=== PATIENT | female | born 1985 | race Caucasian/White ===

== ENCOUNTER 2017-03-22 21:19 | Emergency (ER) | payer BC ==
[2017-03-22 21:40] LABS: URINE MUCUS NONE SEEN (Up to 25%); URINE RBC NONE SEEN (0-5/hpf); URINE SQUAMOUS EPITHELIAL CELL NONE SEEN (<= 15/hpf); URINE WBC NONE SEEN (0-4/hpf)
[2017-03-22] MEDS ORDERED: ACETAMINOPHEN 1,000 MG/100 ML VIAL IV ONE (21:50)
[2017-03-22 21:57] LABS: ALBUMIN 3.9 g/dL (3.5-5.0); ALKALINE PHOSPHATASE 55 U/L (38-126); BILIRUBIN, DIRECT 0.3 mg/dL (0.0-0.4); BILIRUBIN, TOTAL 0.4 mg/dL (0.2-1.3); BLOOD UREA NITROGEN 19 mg/dL (7-17); C-REACTIVE PROTEIN 21.1 mg/L (<10.0); CALCIUM 9.2 mg/dL (8.4-10.2); CHLORIDE 102 mmol/L (98-107); EST GLOMERULAR FILTRATION RATE 43 mL/min; GLUCOSE 51 mg/dL (70-100); LIPASE 91 U/L (23-300); MAGNESIUM 2.1 mg/dL (1.6-2.3); POTASSIUM 4.5 mmol/L (3.5-5.1); SODIUM 137 mmol/L (137-145); TOTAL PROTEIN 6.4 g/dL (6.3-8.2)
[2017-03-22 21:58] LABS: ACETAMINOPHEN < 10.0 ug/mL (10.0-30.0); ETHYL ALCOHOL < 10 mg/dL (<10); SALICYLATE < 1.0 mg/dL (<20.0)
[2017-03-22 22:01] LABS: AST 1388 U/L (14-36); BASOPHILS 0.1 % (0.0-2.0); HEMATOCRIT 42.4 % (36.0-48.0); HEMOGLOBIN 14.2 g/dL (12.0-16.0); LYMPHOCYTES 16.6 % (20.0-40.0); LYMPHOCYTES# 3.1 X 10^3uL (0.8-3.8); MEAN CELL VOLUME 91.2 fL (80.0-100.0); MEAN CORPUS. HGB CONCENTRATION 33.6 g/dL (32.0-36.0); MEAN CORPUSCULAR HEMOGLOBIN 30.6 pg (29.0-35.0); MEAN PLATELET VOLUME 9.3 fL (7.4-10.4); MONOCYTES 7.3 % (2.0-10.0); MONOCYTES# 1.4 X 10^3uL (0.2-1.0); NEUTROPHILS# 14.3 X 10^3uL (2.6-6.7); PLATELET COUNT 210 X 10^3uL (130-440); RED BLOOD COUNT 4.65 X 10^6uL (4.20-6.10); WHITE BLOOD COUNT 18.8 X 10^3uL (3.9-10.7)
[2017-03-22 22:03] LABS: ALT 1250 U/L (9-52)
[2017-03-22] MEDS ORDERED: MIDAZOLAM HCL 2 MG/2 ML VIAL ONE (22:07)
[2017-03-22] MEDS ORDERED: NALOXONE HCL 2 MG/2 ML SYR ONE (22:08)
--- NOTE | 2017-03-22 22:25 | CT REPORT ---
HISTORY: Unresponsive COMPARISON: None. TECHNIQUE: Axial non-contrast images obtained from skull vertex through foramen magnum. Dose reduction technique was utilized. FINDINGS: Examination is limited by streak artifact. There is no atrophy. There is no hemorrhage. There is no hydrocephalus. No mass lesion is identifi ed. Delong white differentiation adequate, there is no infarction. No midline shift is identified. T here is a mucous retention cyst in the right maxillary sinus. The other paranasal sinuses and mastoid air cells are clear. IMPRESSION: No acute intracranial abnormality. Final Electronic Signature: This report was electronically signed by Dave Fair MD on 03/22/2017 1 0:23 PM. [email or web address] /
[2017-03-22] MEDS ORDERED: VANCOMYCIN HCL 1,000 MG/20 ML VIAL ONE (22:35)
[2017-03-22] MEDS ORDERED: NORMAL SALINE 100 ML IV ONE (22:35)
[2017-03-22] MEDS ORDERED: PIPERACILLIN /TAZO 4.5 GM/10 ML VIAL IV ONE (22:36)
[2017-03-22] MEDS ORDERED: NORMAL SALINE 250 ML IV ONE (22:36)
[2017-03-22] MEDS ORDERED: NOREPINEPHRINE BITARTRATE 4 MG/4 ML VIAL IV ONE ×2 (22:37→22:46)
[2017-03-22] MEDS ORDERED: NORMAL SALINE 2,000 ML IV ONE (22:40)
[2017-03-22] MEDS ORDERED: DEXTROSE 5% WATER 500 ML IV ONE ×2 (22:42→23:09)
[2017-03-22 22:50] LABS: ARTERIAL BLOOD GAS HCO3 16.6 mmol/L (22-26); ARTERIAL BLOOD GAS PCO2 32.2 mmHg (35-45)
[2017-03-22] MEDS ORDERED: NORMAL SALINE 1,000 ML IV ONE (22:52)
[2017-03-22 22:54] LABS: URINE APPEARANCE CLEAR; URINE COLOR YELLOW; URINE LEUKOCYTE ESTERASE NEGATIVE (NEGATIVE); URINE NITRITE NEGATIVE (NEGATIVE); URINE PH 5.5 (5-7); URINE SPECIFIC GRAVITY 1.025 (0.001-1.035)
[2017-03-22 22:55] LABS: URINE BACTERIA NONE SEEN (<10/hpf); URINE BILIRUBIN NEGATIVE (NEGATIVE); URINE BLOOD NEGATIVE (NEGATIVE); URINE GLUCOSE NORMAL (NEGATIVE); URINE KETONE NEGATIVE (NEGATIVE); URINE PROTEIN 30mg/dL (1+) (NEG - TRACE); URINE UROBILINOGEN 0.2mg/dL (Normal) (NEG-1mg/dL)
[2017-03-22] MEDS ORDERED: VASOPRESSIN 20 UNITS/ML VIAL ONE ×2 (23:06→23:10)
--- NOTE | 2017-03-22 23:38 | ER NURSING DOCUMENTATION ---
Nurse's Notes [facility] Name:Arabella Patel Age:32 yrs Sex:Female :1985 Arrival Date:03/22/2017 Time:21:19 BedTrauma-A Private MD:Physician, No Diagnosis:Overdose;Sepsis Presentation: 03/22 21:21 Transition of care: patient was not received from another setting of care. Notified ED nf Physician of patient's arrival and CC Dr. Massey notified. 21:21 Acuity: DARYL 1 nf 21:21 Method Of Arrival: EMS: 420 rh 22:36 Presenting complaint: Presenting complaint: EMS states: Pt was not feeling well today, rh general malaise. Tonight the patient became unconscious, foaming at the mouth, difficulty breahting and unresponsive while asleep, family called 911 and CPR was begun by family and CPR was initiated by fire. upon arrival ems suctioned copious amounts of mucus and bile from her airway. Pt was intubated, IV's initiated. Parents deny any drug use. Triage Assessment: 22:41 General: Appears distressed, Behavior is listless. Pain: Denies pain. Neuro: Level of bw2 Consciousness is listless, unresponsive. Respiratory: Breath sounds are diminished bilaterally. Historical: - Allergies: Bactrim; - Home Meds: 1. Clonazepam Oral - PMHx: BACK PAIN; deviate septum; ANXIETY; - PSHx: back fusions; deviated septum surgery; CHOLECYSECTOMY; ; - Tetanus: unknown. - Ebola Screening: : Patient negative for fever greater than or equal to 101.5 degrees Fahrenheit, and additional compatible Ebola Virus Disease symptoms. Patient denies exposure to infectious person. Patient denies travel to an Ebola-affected area in the 21 days before illness onset. No symptoms or risks identified at this time. . - Immunization history: Unable to Obtain. - Social history: Smoking status: Patient uses tobacco products, heavy tobacco smoker. Screenin:43 Infectious Disease Risk None. Abuse screen: Denies threats or abuse. Nutritional bw2 screening: No deficits noted. Assessment: 22:30 Neuro: Pupils are fixed, constricted. Cardiovascular: Rhythm is sinus tachycardia. bw2 22:42 See Triage Assessment done by same RN. bw2 23:08 Reassessment: contacts removed and given to family . rh Vital Signs: 21:31 Pulse 129 MON; Resp 30; Pulse Ox 92% ; rh 21:36 Pulse 129 MON; Resp 30; Pulse Ox 94% ; rh 21:36 BP 110 / 68 (auto/); rh 21:40 BP 98 / 60 (auto/); rh 21:46 Pulse 129 MON; Resp 17; Pulse Ox 95% ; rh 21:50 BP 102 / 55 (auto/); rh 22:39 BP 83 / 36 (auto/); Pulse 122 MON; Resp 13; Pulse Ox 97% ; rh 22:43 BP 72 / 58 (auto/); rh 22:44 Pulse 121 MON; Resp 19; Temp 101.7(R); Pulse Ox 96% ; rh 22:50 BP 86 / 48 (auto/); rh 22:54 Pulse 120 MON; Resp 24; Pulse Ox 92% ; rh 22:55 BP 72 / 61 (auto/); rh 22:59 Pulse 119 MON; Resp 25; Pulse Ox 93% ; rh 23:08 BP 75 / 53 (auto/); Pulse 119; bw2 23:34 BP 90 / 52; Pulse 117; Resp 21; Pulse Ox 99% ; bw2 ED Course: 21:19 Patient arrived in ED. em2 21:19 Physician, No is Private Physician. em2 21:20 Placed oral airway: # 7. rh 21:20 Oxygen O2 via oxygen 100% via the ET tube. rh 21:22 Triage completed. nf 21:22 Jose Angel Massey MD is Attending Physician. be 21:34 Urine collected. Clean catch specimen. em1 21:36 EKG done. (by ED staff). em1 21:[address] mr 22:18 Aydin Lopez is Primary Nurse. bw2 22:19 Patient moved back from [address]. mr 22:35 ABG drawn. (by ED staff). rh 22:43 Inserted peripheral IV: 18 gauge 20 gauge in right in left antecubital area. bw2 22:43 Valuables Remains with patient Patient has correct armband on for positive bw2 identification. Placed in gown. Bed in low position. Side rails up X2. monitoring analyst on. Pulse ox on. NIBP on. 22:45 Inserted peripheral IV: 22 gauge in left Wrist. bw2 23:15 EKG attached rh Administered Medications: 21:30 Drug: NS 0.9% 2000 ml; Route: IV; Rate: bolus; Site: left antecubital; rh 22:40 Follow up: IV Status: Completed infusion; IV Intake: 2000ml rh 21:40 Drug: acetominophen 1000 mg; Route: IVP; Site: right antecubital; rh 23:16 Follow up: Response: No adverse reaction rh 22:36 Drug: vancomycin 1 grams; Route: IVPB; Infused Over: 2 hrs; Site: right antecubital; rh 23:16 Follow up: IV Status: Infusing continued upon transfer rh 22:36 Drug: Zosyn - Piperacillin-Tazobactam 4.5 grams; Route: IVPB; Site: left antecubital; rh 23:03 Follow up: IV Status: Completed infusion; IV Intake: 100ml rh 22:36 Drug: Levophed 4 mcg/min; {Note: LEVOPHED STARTED AT 10 mcg/min at 2236 LEVOPHED rh INCREASED TO 20 mcg/min at 2242 and TRITRATED AGAIN TO 30 mcg/min at 2247.} Route: IV; Rate: calculated rate; Site: right antecubital; 22:44 Drug: Levophed 20 mcg/min; Route: IV; Rate: calculated rate; Site: right antecubital; bw2 23:16 Follow up: IV Status: Infusing continued upon transfer rh 22:50 Drug: NS 0.9% 1000 ml; Route: IV; Rate: bolus; Site: left wrist; rh 23:16 Follow up: IV Status: Infusing continued upon transfer rh 23:00 Drug: Vasopressin 0.2 units/min; {Note: ADMIN BY VICENTE ORTIZ - INCREASED TO 0.4 mcg/min at rh 2312.} Route: IV; Rate: 100 mcg/min; Site: left antecubital; 23:16 Follow up: IV Status: Infusing continued upon transfer rh 23:18 Drug: NS 0.9% 1000 ml; {Note: HUNG BY AYDIN ORTIZ PER FLIGHT CREW REQUEST.} Route: IV; rh Rate: bolus; Site: right antecubital; 23:18 Follow up: IV Status: Infusing continued upon transfer rh Point of Care Testing: Urine Dip: 21:34 pH: 5.5; ; Specific [place]: 1.020; Ketones: Negative; Glucose: Negative; Protein: em1 Positive (+); Leukocytes: Negative; Nitrite: Negative ; Blood: Negative; Bilirubin: Negative ; Urobilinogen: Normal Intake: 22:40 IV: 2000ml; Total: 2000ml. rh 23:03 IV: 100ml; Total: 2100ml. rh 23:08 IV: 3000ml (NS); Total: 5100ml. bw2 23:09 PO: 0ml; Total: 5100ml. rh Output: 23:08 Urine: 100ml (Barr); Total: 100ml. bw2 23:09 Urine: 1200ml (Barr); Total: 1300ml. rh Outcome: 22:34 ER care complete, transfer ordered by . be 23:22 Transferred: Patient will be transferred to: [facility]. Facility rh Acceptance Time: March 22, 2017 at 22:30 Patient's face sheet was faxed to accepting facility. Face Sheet included patient's name, address, age, gender, contact information and insurance information. Patient will be transported by: [employer]. Nurse and Physician Charting and Notes were sent to Accepting Facility. All tests and/or procedures with results, if applicable, were sent to accepting facility. 23:22 critical 23:22 Instructed on need for transfer 23:36 Transferred: Report called to: Radha ORTIZ bw2 23:37 Patient left the ED. bw2 Signatures: Alva Cardoza RN RN nf Elliott, Brian, MD MD be Meinking-tech, Johnna-tech em1 Meinking-reg, Johnna-reg em2 Gisel Troy verito lantigua Aydin Lopez 2 Alireza Vazquez mr
--- NOTE | 2017-03-22 23:38 | ER PHYSICIAN DOCUMENTATION ---
Physician Documentation [facility] Name:Arabella Patel Age:32 yrs Sex:Female :1985 Arrival Date:03/22/2017 Time:21:19 BedTrauma-A Private MD:Physician, No ED Jose Angel Cavanaugh Disposition: 03/22/17 22:34 Transfer ordered to [facility]. Diagnosis are Overdose, Sepsis. - Reason for transfer: Higher level of care. - Accepting physician is Dr. Boudreaux. - Condition is Critical. - Problem is new. - Symptoms have worsened. COBRA Form completed? Transfer - Mode of Transportation Helicopter HPI: 03/22 21:57 This 32 yrs old Female presents to ER via EMS with complaints of Unresponsive.be 21:57 The patient presents to the emergency department with a possible overdose, Known to be take Dilaudid for chronic pain, just arrived from [place] today. Parents state she was ill with dizziness and ongoing back pain, Family called 911 when she wouldn't wake up from her afternoon nap. Family started CPR and parmedics intubated, gave 2 mg Narcan with some improved respirations. Accucheck 150 mg/dl.. Historical: - Allergies: Bactrim; - Home Meds: 1. Clonazepam Oral - PMHx: BACK PAIN; deviate septum; ANXIETY; - PSHx: back fusions; deviated septum surgery; CHOLECYSECTOMY; ; - Tetanus: unknown. - Ebola Screening: : Patient negative for fever greater than or equal to 101.5 degrees Fahrenheit, and additional compatible Ebola Virus Disease symptoms. Patient denies exposure to infectious person. Patient denies travel to an Ebola-affected area in the 21 days before illness onset. No symptoms or risks identified at this time. . - Immunization history: Unable to Obtain. - Social history: Smoking status: Patient uses tobacco products, heavy tobacco smoker. ROS: 22:02 Constitutional: Positive for fever. be 22:02 Cardiovascular: Positive for tachycardia. 22:02 Respiratory: Positive for aspiration. 22:02 Neuro: Positive for altered mental status, loss of consciousness. 22:02 All other systems are negative. Exam: 22:04 Constitutional: The patient appears comatose. be 22:04 Cardiovascular: Rate: tachycardic, Rhythm: regular. 22:04 Respiratory: Respirations: shallow respirations, that is severe, Breath sounds: decreased breath sounds. 22:04 Neuro: Orientation: unable to test. 22:04 Neuro: Babinski testing reveals downgoing, . 22:04 Psych: Behavior/mood is comatose. 22:53 Psych: Affect is comatose, intubated. unknown. be 22:54 Neuro: Cerebellar function: comatose, intubated. be 22:54 Neuro: Cranial nerves: CN I not tested, unable to test. be 22:54 Neuro: Motor: unable to test, the patient is comatose. be Vital Signs: 21:31 Pulse 129 MON; Resp 30; Pulse Ox 92% ; rh 21:36 Pulse 129 MON; Resp 30; Pulse Ox 94% ; rh 21:36 BP 110 / 68 (auto/); rh 21:40 BP 98 / 60 (auto/); rh 21:46 Pulse 129 MON; Resp 17; Pulse Ox 95% ; rh 21:50 BP 102 / 55 (auto/); rh 22:39 BP 83 / 36 (auto/); Pulse 122 MON; Resp 13; Pulse Ox 97% ; rh 22:43 BP 72 / 58 (auto/); rh 22:44 Pulse 121 MON; Resp 19; Temp 101.7(R); Pulse Ox 96% ; rh 22:50 BP 86 / 48 (auto/); rh 22:54 Pulse 120 MON; Resp 24; Pulse Ox 92% ; rh 22:55 BP 72 / 61 (auto/); rh 22:59 Pulse 119 MON; Resp 25; Pulse Ox 93% ; rh 23:08 BP 75 / 53 (auto/); Pulse 119; bw2 23:34 BP 90 / 52; Pulse 117; Resp 21; Pulse Ox 99% ; bw2 MDM: 21:54 Patient medically screened. be 22:07 Differential diagnosis: Ingestion/exposure to Oxycontin, Dilaudid and benzodiazapine be aspiration. Data reviewed: vital signs, nurses notes, lab test result(s), EKG, radiologic studies, and as a result, I will *Transfer Patient. ECG:. 23:15 EKG attached 03/22 21:55 Order name: LACTATE; Complete Time: 22:13 EDMS 03/22 22:10 Interpretation: Abnormal. be 03/22 21:59 Order name: BASIC METABOLIC PANEL; Complete Time: 22:51 EDMS 03/22 22:10 Interpretation: Abnormal: prerenal azotemia. 03/22 21:59 Order name: MAGNESIUM; Complete Time: 22:51 EDMS 03/22 22:10 Interpretation: Normal. 03/22 21:59 Order name: HEPATIC PANEL; Complete Time: 22:51 EDMS 03/22 22:11 Interpretation: Abnormal: elevated LFT's. 03/22 21:59 Order name: LIPASE; Complete Time: 22:51 EDMS 03/22 22:11 Interpretation: Normal. 03/22 21:59 Order name: SALICYLATE; Complete Time: 22:51 EDMS 03/22 22:11 Interpretation: Normal. 03/22 21:59 Order name: ETHYL ALCOHOL; Complete Time: 22:51 EDMS 03/22 22:30 Interpretation: Normal. 03/22 21:59 Order name: ACETAMINOPHEN; Complete Time: 22:51 EDMS 03/22 22:30 Interpretation: Normal: Normal. 03/22 21:59 Order name: C-REACTIVE PROTEIN; Complete Time: 22:51 EDMS 03/22 22:12 Interpretation: Abnormal. 03/22 22:02 Order name: CBC AUTO DIF, MDIF/RMOR IF IND; Complete Time: 22:51 EDMS 03/22 22:12 Interpretation: Abnormal: Leukocytosis with left shift and polycythemia. 03/22 22:44 Order name: TROPONIN I; Complete Time: 22:51 EDMS 03/22 22:50 Interpretation: Abnormal: elevated. 03/22 22:44 Order name: THYROID STIMULATING HORMONE; Complete Time: 22:51 EDMS 03/22 22:50 Interpretation: Normal. 03/22 22:51 Order name: ARTERIAL BLOOD GAS; Complete Time: 22:53 EDMS 03/22 22:53 Interpretation: Normal Except: hypoxemia and acidotic. 03/22 22:57 Order name: UA W/ MICRO -CULTURE IF IND; Complete Time: 23:24 EDMS 03/22 22:57 Order name: URINE DRUG SCREEN, QUAL; Complete Time: 23:24 EDMS 03/23 22:18 Order name: BLOOD CULTURE EDMS 03/23 22:19 Order name: BLOOD CULTURE EDMS 03/22 22:27 Order name: CAT SCAN; HEAD W/O CON [id number]; Complete Time: 22:32 EDMS 03/22 Interpretation: Normal: Normal. be 07 17:21 Order name: CHEST; [place]ING[place] [id number] EDMS 03/22 21:26 Order name: Continuous Cardiac Monitoring; Complete Time: 21:33 be 03/22 21:26 Order name: I & O; Complete Time: 21:33 be 03/22 21:26 Order name: Iv Saline Lock; Complete Time: 21:33 be 03/22 21:26 Order name: NPO; Complete Time: :33 be 03/22 21:26 Order name: Pulse Ox Continuous; Complete Time: 21:33 be 03/22 21:26 Order name: Suicide Precautions; Complete Time: 21:33 be 03/22 21:29 Order name: 12-lead EKG; Complete Time: 21:40 be 03/22 21:29 Order name: Oxygen; Complete Time: 21:40 be 03/22 22:22 Order name: Narcan at bedside; Complete Time: 22:35 be EC:07 Rate is 129 beats/min. Rhythm is regular, Sinus tachycardia with No ectopy. QRS [place] is be Normal. PA interval is normal. QRS interval is normal. QT interval is prolonged at 575 msec. No Q waves. T waves are Flattened. No ST changes noted. Clinical impression: No evidence of ischemia. Interpreted by me. Dispensed Medications: 21:30 Drug: NS 0.9% 2000 ml; Route: IV; Rate: bolus; Site: left antecubital; rh 22:40 Follow up: IV Status: Completed infusion; IV Intake: 2000ml rh 21:40 Drug: acetominophen 1000 mg; Route: IVP; Site: right antecubital; rh 23:16 Follow up: Response: No adverse reaction rh 22:36 Drug: vancomycin 1 grams; Route: IVPB; Infused Over: 2 hrs; Site: right antecubital; rh 23:16 Follow up: IV Status: Infusing continued upon transfer rh 22:36 Drug: Zosyn - Piperacillin-Tazobactam 4.5 grams; Route: IVPB; Site: left antecubital; rh 23:03 Follow up: IV Status: Completed infusion; IV Intake: 100ml rh 22:36 Drug: Levophed 4 mcg/min; {Note: LEVOPHED STARTED AT 10 mcg/min at 2236 LEVOPHED rh INCREASED TO 20 mcg/min at 2242 and TRITRATED AGAIN TO 30 mcg/min at 2247.} Route: IV; Rate: calculated rate; Site: right antecubital; 22:44 Drug: Levophed 20 mcg/min; Route: IV; Rate: calculated rate; Site: right antecubital; bw2 23:16 Follow up: IV Status: Infusing continued upon transfer rh 22:50 Drug: NS 0.9% 1000 ml; Route: IV; Rate: bolus; Site: left wrist; rh 23:16 Follow up: IV Status: Infusing continued upon transfer rh 23:00 Drug: Vasopressin 0.2 units/min; {Note: ADMIN BY VICENTE ORTIZ - INCREASED TO 0.4 mcg/min at rh 2312.} Route: IV; Rate: 100 mcg/min; Site: left antecubital; 23:16 Follow up: IV Status: Infusing continued upon transfer rh 23:18 Drug: NS 0.9% 1000 ml; {Note: HUNG BY AYDIN ORTIZ PER FLIGHT CREW REQUEST.} Route: IV; rh Rate: bolus; Site: right antecubital; 23:18 Follow up: IV Status: Infusing continued upon transfer rh Point of Care Testing: Urine Dip: 21:34 pH: 5.5; ; Specific [place]: 1.020; Ketones: Negative; Glucose: Negative; Protein: em1 Positive (+); Leukocytes: Negative; Nitrite: Negative ; Blood: Negative; Bilirubin: Negative ; Urobilinogen: Normal Signatures: Jose Angel Massey MD MD be Hofsess, Rachel verito lantigua [facility]
--- NOTE | 2017-03-24 11:16 | RADIOLOGY REPORT ---
A limited single portable view of the chest demonstrates endotracheal tube in place with its tip 4.5 cm above the neena. The heart and vessels are unremarkable. Question right upper lobe infiltrate. No fluid or pneumothorax is seen. IMPRESSION: 1. Endotracheal tube in appropriate position. 2. Question right upper lobe infiltrate. MTDD
== END 2017-03-22 23:38 | disposition short-term general hospital (02) ==
LOC: EDBD 21:19 → ER 21:19 → EEVIPCON 21:19 → ER 23:38
DX: R40.20 Unspecified coma (principal); T42.4X4A Poisoning by benzodiazepines, undetermined, initial encounter; T40.604A Poisoning by unspecified narcotics, undetermined, initial encounter; T40.2X4A Poisoning by other opioids, undetermined, initial encounter; R00.0 Tachycardia, unspecified; R79.89 Other specified abnormal findings of blood chemistry; N19 Unspecified kidney failure; R09.02 Hypoxemia; R06.89 Other abnormalities of breathing; E87.2 Acidosis; R91.8 Other nonspecific abnormal finding of lung field; R74.8 Abnormal levels of other serum enzymes; T17.908A Unspecified foreign body in respiratory tract, part unspecified causing other injury, initial encounter; Z99.89 Dependence on other enabling machines and devices; Z74.3 Need for continuous supervision; Z79.899 Other long term (current) drug therapy; Z79.891 Long term (current) use of opiate analgesic
CPT/HCPCS: 70450; 71010; 80048; 80076; 80305; 80307; 80320; 80329; 80361; 80365; 81001; 82803; 83605; 83690; 83735; 84443; 84484; 85025; 86140; 87040; 93005; 96365; 96368; 96375; 99285; G6058; A0420; A0425; A0433; J2250; J2310; J2543; J3370; J7030; J7050; J7060